=== PATIENT | male | born 2000 | race Caucasian/White ===

== ENCOUNTER 2023-08-20 09:50 | Outpatient (REF) | payer MEDICAID, OTHER, SELFPAY ==
[2023-08-20 11:54] LABS: ~HepC Num1 0.08 S/CO (0.00-0.79); ~Hepatitis B Surface Antibody NONREACTIVE (Nonreactive); ~Hepatitis C Antibody Nonreactive (Nonreactive)
[2023-08-20 11:56] LABS: Alanine Aminotransferase 52 U/L (0-40); Albumin Level 4.9 g/dL (3.5-5.0); Alkaline Phosphatase 69 U/L (39-117); Anion Gap 15 (12-20); Aspartate Amino Transferase 38 U/L (5-37); Bilirubin Total 0.6 mg/dL (0.0-1.0); Blood Urea Nitrogen 12 mg/dL (9-16); Calcium 10.2 mg/dL (8.4-10.2); Carbon Dioxide 25 mmol/L (22-29); Chloride 104 mmol/L (96-108); Cholesterol 260 mg/dL (<200); Estimated Glomerular Filt Rate > 60; Glucose Random 91 mg/dL (60-115); HDL Cholesterol 51 mg/dL (>40); Iron 82 mcg/dL (45-160); LDL Cholesterol Calculated 182 mg/dL (<100); Magnesium 1.9 mg/dL (1.6-2.6); Percent Iron Saturation 24 % (15-50); Potassium 4.3 mmol/L (3.3-5.1); Sodium 140 mmol/L (135-145); Total Iron Binding Capacity 345 mcg/dL (228-428); Total Protein 8.3 g/dL (6.5-8.0); Triglycerides 135 mg/dL (<150); Unsaturated Iron Binding 263 ug/dL
[2023-08-20 13:10] LABS: CT PCR NOT DETECTED (Not Detect.); NG PCR NOT DETECTED (Not Detect.)
[2023-08-24 10:14] LABS: RPR Rapid Plasma Reagin NON-REACTIVE (NON-REACTIVE)
[2023-08-24 17:34] LABS: HIV RNA PCR Qn Copies Not Detected Copies/mL; HIV RNA PCR Qn Log Copies Not Detected Log cps/mL
== END 2023-08-20 09:51 | disposition home or self-care (01) ==
LOC: HO.HHCL 09:50
PROVIDERS: Visit Provider Nurse Practitioner Family
DX: Z00.00 Encounter for general adult medical examination without abnormal findings (principal); Z71.3 Dietary counseling and surveillance; Z20.2 Contact with and (suspected) exposure to infections with a predominantly sexual mode of transmission
CPT/HCPCS: 0353U; 36415; 80053; 80061; 83540; 83735; 86592; 86706; 86787; 86803; 87536; 87900

== ENCOUNTER 2024-04-22 15:00 | Outpatient (REF) | payer MEDICAID, OTHER, SELFPAY ==
[2024-04-23 00:48] LABS: Anion Gap 13 (12-20); Blood Urea Nitrogen 17 mg/dL (9-16); Carbon Dioxide 28 mmol/L (22-29); Chloride 102 mmol/L (96-108); Estimated Glomerular Filt Rate > 60; Glucose Random 96 mg/dL (60-115); Potassium 3.7 mmol/L (3.3-5.1); Sodium 139 mmol/L (135-145)
== END 2024-04-22 15:01 | disposition home or self-care (01) ==
LOC: HO.HHCL 15:00
PROVIDERS: Visit Provider Internal Medicine Geriatric Medicine
DX: I10 Essential (primary) hypertension (principal)
CPT/HCPCS: 36415; 80048

== ENCOUNTER 2024-07-05 10:11 | Outpatient (REF) | payer MEDICAID, OTHER, SELFPAY ==
[2024-07-05 11:23] LABS: Estimated Average Glucose 103 mg/dL; Hemoglobin A1C 124.7934 umol/L; Hemoglobin A1c % 5.2 % (<6.0); Total Hemoglobin (HGBA1C) 3777.4541 umol/L
[2024-07-05 11:43] LABS: HIV AB/AG Nonreactive (Nonreactive); HIV Num 1 0.05 S/CO (0.00-0.99)
[2024-07-05 11:44] LABS: TSH reflex Free T4 1.36 uIU/mL (0.32-4.0)
[2024-07-05 11:45] LABS: Syphilis Screen Nonreactive (Nonreactive)
[2024-07-05 12:44] LABS: CT PCR NOT DETECTED (Not Detect.); NG PCR NOT DETECTED (Not Detect.)
[2024-07-10 08:53] LABS: Aldosterone/Renin Ratio 1.2 Ratio (0.9-28.9); Plasma Renin Activity 17.01 ng/mL/h (0.25-5.82)
== END 2024-07-05 10:12 | disposition home or self-care (01) ==
LOC: HO.HHCL 10:11
PROVIDERS: Visit Provider Registered Nurse
DX: Z11.3 Encounter for screening for infections with a predominantly sexual mode of transmission (principal); I10 Essential (primary) hypertension; E66.09 Other obesity due to excess calories; Z68.33 Body mass index [BMI] 33.0-33.9, adult
CPT/HCPCS: 36415; 82088; 83036; 84443; 86780; 87389; 87491; 87591

== ENCOUNTER 2024-08-01 08:34 | Outpatient (REF) | payer MEDICAID, SELFPAY ==
--- NOTE | ~2024-08-01 | US_ITS ---
EXAMINATION: US OF KIDNEYS WITH RENAL ARTERY DOPPLER CLINICAL INFORMATION: Hypertension. COMPARISON: None available.. TECHNIQUE: Ultrasound of the kidneys was performed along with color flow Doppler imaging and velocity measurements in the proximal mid and distal renal arteries. Aortic velocities were measured and renal/aortic ratios were calculated. In addition, segmental resistive indices were measured bilaterally. FINDINGS: The kidneys appeared normal with the right kidney measuring 11.4 x 5.4 x 6.0 cm and the left kidney measuring 12.9 x 5.4 x 6.2 cm. No renal masses, renal stones or hydronephrosis is seen. Renal cortical thickness appears normal. Velocity measurements in the proximal mid and distal renal arteries are normal. Velocity in the aorta is elevated at 120 cm/s and therefore renal aortic ratios are normal. Segmental resistive indices bilaterally are within normal limits. The bladder appeared unremarkable. US/US renal BI IMPRESSION: No evidence to suggest renal artery stenosis. Electronically signed by: Neftaly Singh MD 09/01/2024 11:10 PM PRATIK
== END 2024-08-01 08:35 | disposition home or self-care (01) ==
LOC: HO.US 08:34
PROVIDERS: PCP Registered Nurse; Visit Provider Registered Nurse
DX: I10 Essential (primary) hypertension (principal)
CPT/HCPCS: 76775; 93975

== ENCOUNTER 2024-09-22 11:11 | Outpatient (REF) | payer MEDICAID, SELFPAY ==
[2024-09-22 13:41] LABS: Appearance Urine Clear; Color Urine Dark Yellow; Glucose Urine UA Negative (Negative); Leukocyte Esterase Urine Negative (Negative); Nitrite Urine Negative (Negative); PH 6.5 (5.0-9.0); Specific Gravity - Urine >= 1.030 (1.005-1.025); UMIC TRIGGER UACC YES; Urine Blood Negative (Negative); Urine Ketones >=160 mg/dL (Negative); Urine Protein 30 (1+) mg/dL (Neg-Trace)
[2024-09-22 13:49] LABS: Bacteria Urine None Seen (None Seen); Hyaline Casts Urine 0-2 /LPF (0-2); RBC Urine 0-2 /HPF (0-2); Squamous Epithelial Cell Urine 0-2 /HPF (0-2); WBC Urine 0-5 /HPF (0-5)
[2024-09-22 14:32] LABS: Creatinine Urine 468.15 mg/dL; Protein/Creatinine Ratio, Ur 0.05 (<0.2); Total Protein Urine Random 22 mg/dL (<12)
[2024-09-22 17:30] LABS: CT PCR NOT DETECTED (Not Detect.); NG PCR NOT DETECTED (Not Detect.)
== END 2024-09-22 11:12 | disposition home or self-care (01) ==
LOC: HO.HHCL 11:11
PROVIDERS: Visit Provider Registered Nurse
DX: Z11.3 Encounter for screening for infections with a predominantly sexual mode of transmission (principal); I10 Essential (primary) hypertension
CPT/HCPCS: 81001; 82570; 84156; 87491; 87591

== ENCOUNTER 2024-10-03 15:10 | Outpatient (REF) | payer MEDICAID, SELFPAY ==
[2024-10-03 16:41] LABS: Estimated Average Glucose 100 mg/dL; Hemoglobin A1C 125.6986 umol/L; Hemoglobin A1c % 5.1 % (<6.0); Total Hemoglobin (HGBA1C) 3875.2236 umol/L
[2024-10-03 17:05] LABS: Anion Gap 12 (12-20); Blood Urea Nitrogen 13 mg/dL (9-16); Calcium 10.1 mg/dL (8.4-10.2); Carbon Dioxide 27 mmol/L (22-29); Chloride 104 mmol/L (96-108); Estimated Glomerular Filt Rate > 60; Glucose Random 77 mg/dL (60-115); Potassium 4.1 mmol/L (3.3-5.1); Sodium 139 mmol/L (135-145)
[2024-10-03 17:21] LABS: TSH reflex Free T4 1.27 uIU/mL (0.32-4.0)
[2024-10-03 18:02] LABS: Appearance Urine Clear; Color Urine Yellow; Glucose Urine UA Negative (Negative); Leukocyte Esterase Urine Negative (Negative); Nitrite Urine Negative (Negative); PH 7.5 (5.0-9.0); Urine Blood Negative (Negative); Urine Ketones Trace mg/dL (Negative); Urine Protein Negative (Neg-Trace)
[2024-10-03 18:11] LABS: Creatinine Urine 197.76 mg/dL; Total Protein Urine Random < 7 mg/dL (<12)
== END 2024-10-03 15:11 | disposition home or self-care (01) ==
LOC: HO.HHCL 15:10
PROVIDERS: Registered Nurse; Visit Provider Internal Medicine
DX: R20.0 Anesthesia of skin (principal); R20.2 Paresthesia of skin; R80.9 Proteinuria, unspecified; I10 Essential (primary) hypertension
CPT/HCPCS: 36415; 80048; 81003; 82570; 83036; 84156; 84443

== ENCOUNTER 2024-11-28 12:07 | Outpatient (REF) | payer MEDICAID, SELFPAY ==
--- OUTSIDE RECORDS SUMMARY | 2024-11-28 13:58 | XMS_ITS | Encounter Summary ---
Author Organization [employer] Address [address] [facility] 7t [place] [address] Care Team Providers Care Director Of Category Management Name Role Phone [facility] Primary Care Provider [phone] Reason for Visit * Reason Onset Date Comments Med Refill 09/25/2024 Encounter Details Date Type Department Care Team (Late st Contact Info) Description 09/25/2024 Refill [facility] [address] [place] [address] [facility] [address] [place] [address] Social History Tobacco Use Types Packs/Day Years Used Date Smoking Tobacco: Never Smokeless Tobacco: Never Alcohol Use Standard Drinks/Week Comments Not Currently 0 (1 standard drink = 0.6 oz pur e alcohol) occasional Depression Answer Date Recorded Patient Health Questionnaire-9 Score 8 09/21/2024 Patient Health Questionnaire-9 Score 8 09/21/2024 Last PHQ-9: Questionnaire Data Not on file 1 11/22/2023 Housing Stability Answer Date Recorded What is your housing situation today? I have telinda montano 08/12/[address] you li ve. Do you have problems with any of the following? None of the above 08/12/2023 Food Insecurity Answer Date Recorded Within the past 12 months, y ou worried that your food would run out before you got money to buy more: Never True 08/12/2023 Within the past 12 months,th e food you bought just didn't last and you didn't have enough money to get more: Never True 05/2023 Transportation Answer Date Recorded In the past 12 months, has l ack of transportation kept you from medical appts, meetings, work or from getting things needed for daily living? No 08/12/2023 Utilities Answer Date Recorded In the past 12 months, has t he electric, gas, oil or water company threatened to shut off services in your home? No 08/12/2023 Depression Answer Date Recorded Patient Health Questionnaire-2 Score 2 09/21/2024 Internet Access Answer Date Recorded Internet Access Q1 Yes 06/24/2024 Internet Access Q2 Not on file 06/24/2024 Sex and Gender Information Value Date Recorded Sex Assigned at Male 12/09/2022 10:25 AM EST Legal Sex Male 10:23 AM EST Gender Identity Male 12/09/2022 10:25 AM EST Sexual Orientation Padgett 09/09/2023 3: 19 PM EST documented as of this encounter Plan of Treatment Not on file documented as of this encounter Visit Diagnoses Not on filedocumented in this encounter Additional Health Concerns Assessment Noted Time PHQ-9 Depression Total Score: 8 09/21/20 10:39 AM EST documented as of this encounter Care Teams Director Of Category Management Relationship Specialty Start Date End Date Madeleine Marquez FNP [address] [place] [address] PCP - General Family Medicine 06/08/24 documented as of this encounter
--- OUTSIDE RECORDS SUMMARY | 2024-11-28 13:58 | XMS_ITS | Encounter Summary ---
Author Organization [employer] Address [address] [facility] 7t [place] [address] Care Team Providers Care Certified Forklift Operator Name Role Phone Madeleine Marquez Primary Care Provider [phone] Reason for Referral * Imaging (Routine) - Closed Specialty Diagnoses / Procedures Referred By Susanna sanderson Referred To Contact Cardiology Diagnoses Hypertension, unspecified type Procedures VASC US Renal Artery Duplex Complete Madeleine Marquez FNP [address] [place] [address] Phone: tel: fax: [facility] [address] [place], [place] Phone: tel: fax: Referral ID Status Reason Start Date Expiration Date V isits Requested Visits Authorized [id number] Closed Perform Procedure 07/13/2024 07/13/2025 1 1 Encounter Details Date Type Department Care Team (Late st Contact Info) Description 07/13/2024 Orders Only [facility] [address] [place] [address] Madeleine Marquez FNP [address] [place] [address] Hypertension, unspecified type (Primary Dx) Social History Tobacco Use Types Packs/Day Years Used Date Smoking Tobacco: Never Smokeless Tobacco: Never Alcohol Use Standard Drinks/Week Comments Not Currently 0 (1 standard drink = 0.6 oz pur e alcohol) occasional Depression Answer Date Recorded Patient Health Questionnaire-9 Score 6 07/04/2024 Patient Health Questionnaire-9 Score 6 07/04/2024 Last PHQ-9: Questionnaire Data Not on file 0 07/04/2024 Housing Stability Answer Date Recorded What is your housing situation today? I have te montano 08/12/[address] you [...] Date Recorded Patient Health Questionnaire-2 Score 2 07/04/2024 Internet Access Answer Date Recorded Internet Access [...] on file documented as of this encounter Procedures Procedure Name Priority Date/Time Associated Diagnosis Comments US RENAL DOPPLER Routine 08/01/2024 9:10 AM EDT US RENAL BI Routine 08/01/2024 9:10 AM EDT documented in this encounter Results * US RENAL DOPPLER (08/01/2024 9:10 AM EDT) Anatomical Region Laterality Modality Abdomen Ultrasound 08/01/2024 9:10 AM EDT Narrative 09/27/2024 12:29 PM EST ? [facility] [place] ?[address] ?[place] [address] ? Ultrasound Report ? Signed ? Patient: Prill,Rainiero ?MR#: [id number] ?? 10 ? : 2000 ?Acct:[id number] ? Age/Sex: 24 / M ?ADM Date: 08/01/24 ? Loc: HO.US ? Attending Dr: Madeleine AGUILAR ? Ordering Physician: Madeleine Marquez ?? Date of Service: 08/01/24 ?? Procedure(s): US renal doppler ?? Accession Number(s): [id number] ? cc: Madeleine Marquez CORPORATE REAL ESTATE MANAGER ? EXAMINATION: ?? ULTRASOUND OF KIDNEYS WITH RENAL ARTERY DOPPLER ? CLINICAL INFORMATION: ?? Hypertension. ? COMPARISON: ?? None. ? TECHNIQUE: ?? Ultrasound of the kidneys was performed along with color flow Doppler ?? imaging and velocity measurements in the proximal mid and distal renal ?? arteries. Aortic velocities were measured and renal/aortic ratios were ?? calculated. Segmental resistive indices were measured. Renal veins were ?? examined for patency. ? FINDINGS: ?? The kidneys appeared normal with the right kidney measuring 11.4 x 5.4 ?? x 6.0 cm and the left kidney measuring 12.9 x 5.4 x 6.2 cm. No renal ?? masses, renal stones or hydronephrosis is seen. Renal cortical ?? thickness appears normal. Velocity measurements in the proximal mid and ?? distal renal arteries are normal. Velocity in the aorta is 120 cm/s ?? and, therefore, the renal aortic ratios are not valid as velocities ?? overall 100 cm/s. Segmental resistive indices were all normal. Renal ?? veins were patent. ? US/US renal doppler ?? IMPRESSION: ?? 1. ??Normal-appearing kidneys. ?? 2. ??No evidence to suggest renal artery stenosis. ? Electronically signed by: ??Neftaly iSngh MD ??09/27/2024 12:26 PM EST ?? RP ? Dictated By: ?Neftaly Singh MD ? Signed By: ?<Electronically signed by Neftaly Singh MD in OV> ? 09/27/24 1226 ? DD/ 0910 ? TD/TT: 08/01/24 0948 ? Cocoa Bean Roaster Helper: SS ? Procedure Note Donotuseinterpreter, Image - 09/27/[address] [address] Ultrasound Report Signed Patient: Kailash Mar#: [id number] 10 : 2000Acct:[id number] Age/Sex: 24 / MADM Date: 08/01/24 Loc: HO. Attending Dr: Madeleine AGUILAR Ordering Physician: Madeleine Marquez Date of Service: 08/01/24 Procedure(s): US renal doppler Accession Number(s): [id number] cc: Madeleine Marquez EXAMINATION: ULTRASOUND OF KIDNEYS WITH RENAL ARTERY DOPPLER CLINICAL INFORMATION: Hypertension. COMPARISON: None. TECHNIQUE: Ultrasound of the kidneys was performed along with color flow Doppler imaging and velocity measurements in the proximal mid and distal renal arteries. Aortic velocities were measured and renal/aortic ratios were calculated. Segmental resistive indices were measured. Renal veins were examined for patency. FINDINGS: The kidneys appeared normal with the right kidney measuring 11.4 x 5.4 x 6.0 cm and the left kidney measuring 12.9 x 5.4 x 6.2 cm. No renal masses, renal stones or hydronephrosis is seen. Renal cortical thickness appears normal. Velocity measurements in the proximal mid and distal renal arteries are normal. Velocity in the aorta is 120 cm/s and, therefore, the renal aortic ratios are not valid as velocities overall 100 cm/s. Segmental resistive indices were all normal. Renal veins were patent. US/US renal doppler IMPRESSION: 1. Normal-appearing kidneys. 2. No evidence to suggest renal artery stenosis. Electronically signed by: Neftaly Singh MD 09/27/2024 12:26 PM [facility] Dictated By: Neftaly Singh MD Signed By: <Electronically signed by Neftaly Singh MD in OV> 09/27/24 1226 DD/ 0910 TD/TT: 08/01/24 0948 Cocoa Bean Roaster Helper: JEANINE [facility] CORPORATE REAL ESTATE MANAGER IMG US PROCEDURES Edited Resu lt - Final * US RENAL BI (08/01/2024 9:10 AM EDT) Anatomical Region Laterality Modality Abdomen Ultrasound 08/01/2024 9:10 AM EDT Narrative 09/01/2024 11:13 PM EST ? [facility] [place] ?[address] ?[place] [address] ? Ultrasound Report ? Signed ? Patient: Prill,Rainiero ?MR#: [id number] ?? 10 ? : 2000 ?Acct:[id number] ? Age/Sex: 24 / M ?ADM Date: 08/01/24 ? Loc: HO.US ? Attending Dr: Madeleine AGUILAR ? Ordering Physician: Madeleine Marquez ?? Date of Service: 08/01/24 ?? Procedure(s): US renal BI ?? Accession Number(s): [id number] ? cc: Madeleine Marquez ? EXAMINATION: ?? US OF KIDNEYS WITH RENAL ARTERY DOPPLER ? CLINICAL INFORMATION: ?? Hypertension. ? COMPARISON: ?? None available.. ? TECHNIQUE: ?? Ultrasound of the kidneys was performed along with color flow Doppler ?? imaging and velocity measurements in the proximal mid and distal renal ?? arteries. Aortic velocities were measured and renal/aortic ratios were ?? calculated. In addition, segmental resistive indices were measured ?? bilaterally. ? FINDINGS: ?? The kidneys appeared normal with the right kidney measuring 11.4 x 5.4 ?? x 6.0 cm and the left kidney measuring 12.9 x 5.4 x 6.2 cm. No renal ?? masses, renal stones or hydronephrosis is seen. Renal cortical ?? thickness appears normal. Velocity measurements in the proximal mid and ?? distal renal arteries are normal. Velocity in the aorta is elevated at ?? 120 cm/s and therefore renal aortic ratios are normal. Segmental ?? resistive indices bilaterally are within normal limits. The bladder ?? appeared unremarkable. ? US/US renal BI ?? IMPRESSION: ?? No evidence to suggest renal artery stenosis. ? Electronically signed by: ??Neftaly Singh MD ??09/01/2024 11:10 PM EST ?? RP ? Dictated By: ?Neftaly Singh MD ? Signed By: ?<Electronically signed by Neftaly Singh MD in OV> ? 09/01/240 ? DD/ 0910 ? TD/TT: 08/01/2448 ? Cocoa Bean Roaster Helper: SS ? Procedure Note Donotquincyter, Image - 09/01/2024 [place] [address] Ultrasound Report Signed Patient: Kailash Mar#: [id number] 10 : 2000Acct:[id number] Age/Sex: 24 / MADM Date: 08/01/24 Loc: HO. Attending Dr: Madeleine AGUILAR Ordering Physician: Madeleine Marquez Date of Service: 08/01/24 Procedure(s): US renal BI Accession Number(s): [id number] cc: Madeleine Marquez EXAMINATION: US OF KIDNEYS WITH RENAL ARTERY DOPPLER CLINICAL INFORMATION: Hypertension. COMPARISON: None available.. TECHNIQUE: Ultrasound of the kidneys was performed along with color flow Doppler imaging and velocity measurements in the proximal mid and distal renal arteries. Aortic velocities were measured and renal/aortic ratios were calculated. In addition, segmental resistive indices were measured bilaterally. FINDINGS: The kidneys appeared normal with the right kidney measuring 11.4 x 5.4 x 6.0 cm and the left kidney measuring 12.9 x 5.4 x 6.2 cm. No renal masses, renal stones or hydronephrosis is seen. Renal cortical thickness appears normal. Velocity measurements in the proximal mid and distal renal arteries are normal. Velocity in the aorta is elevated at 120 cm/s and therefore renal aortic ratios are normal. Segmental resistive indices bilaterally are within normal limits. The bladder appeared unremarkable. US/US renal BI IMPRESSION: No evidence to suggest renal artery stenosis. Electronically signed by: Neftaly Singh MD 09/01/2024 11:10 PM [facility] Dictated By: Neftaly Singh MD Signed By: <Electronically signed by Neftaly Singh MD in OV> 09/01/24 2310 DD/ TD/TT: 08/01/24947 Cocoa Bean Roaster Helper: JEANINE [facility] IM US PROCEDURES Final Resul t documented in this encounter Visit Diagnoses Diagnosis Hypertension, unspecified type- Primary documented in this encounter Additional Health Concerns Assessment Noted Time PHQ-9 Depression Total Score: 6 07/04/20 24 11:53 AM EDT documented as of this encounter Care Teams Certified Forklift Operator Relationship Specialty Start Date End Date [employer] [facility] [address] [place] [address] PCP - General Family Medicine 06/08/24 documented as of this encounter
--- OUTSIDE RECORDS SUMMARY | 2024-11-28 13:58 | XMS_ITS | Encounter Summary ---
Author Organization [employer] Address [address] [facility] 7t [place] [address] Care Team Providers Care Strategic Partnership Specialist Name Role Phone Madeleine Marquez LPC Primary Care Provider [phone] Reason for Visit * Reason Comments Med Refill Encounter Details Date Type Department Care Team (Late st Contact Info) Description 06/23/2024 Refill [facility] [address] [place] [address] Lyric Salcedo FNP [address] [place] [address] Social History Tobacco Use Types Packs/Day Years Used Date Smoking Tobacco: Never Smokeless Tobacco: Never Alcohol Use Standard Drinks/Week Comments Not Currently 0 (1 standard drink = 0.6 oz pur e alcohol) occasional Depression Answer Date Recorded Patient Health Questionnaire-9 Score 10 04/22/2024 Patient Health Questionnaire-9 Score 10 04/22/2024 Last PHQ-9: Questionnaire Data Not on file 0 04/22/2024 Housing Stability Answer Date Recorded What is [...] Answer Date Recorded Patient Health Questionnaire-2 Score 4 04/22/2024 Internet Access Answer Date Recorded Internet Access [...] Assessment Noted Time PHQ-9 Depression Total Score: 10 024 2:41 PM EDT documented as of this encounter Care Teams Strategic Partnership Specialist Relationship Specialty Start Date End Date Madeleine Marquez FNP [address] [place] [address] PCP - General Family Medicine 06/08/24 documented as of this encounter
--- OUTSIDE RECORDS SUMMARY | 2024-11-28 13:58 | XMS_ITS | Encounter Summary ---
Author Organization [employer] Address [address] [facility] 7t h [address] [address] Care Team Providers Care Sternman Name Role Phone Madeleine Marquez ACCOUNTANT BUDGET Primary Care Provider [phone] Reason for Visit * Reason Onset Date Comments Med Refill 07/24/2024 Encounter Details Date Type Department Care Team (Late st Contact Info) Description 07/24/2024 Refill [facility] [address] [place] [address] Name, MD Gustabo [address] [place] [address] Social History Tobacco Use Types Packs/Day Years [...] documented as of this encounter Care Teams Sternman Relationship Specialty Start Date End Date Madeleine Marquez FNP [address] [place] [address] PCP - General Family Medicine 06/08/24 documented as of this encounter
--- OUTSIDE RECORDS SUMMARY | 2024-11-28 13:58 | XMS_ITS | Clinical Summary ---
Author Organization [facility] Address [address] [place] [address] Care Team Providers Care Tank Farm Gauger Name Role Phone Andrew Rand PA-C Primary Care Provider [phone] Source Comments PLEASE NOTE, if this patient is a minor, it may be UNLAWFUL to discuss sensitive information that is contained in these records (such as FAMILY PLANNING, MENTAL HEALTH or SUBSTANCE ABUSE) with the minor patient's parent or other person without the patient's specific authorization.[facility] Allergies No known active allergies Medications cholecalciferol, vitamin D3, 25 mcg (1,000 unit) capsuleIndication s:Vitamin D deficiency Take 1 Cap by mouth once daily 30 Cap 3 10/03/2019 Active acetaminophen (TYLENOL) 500 mg tabletIndications :Nonintractable headache, unspecified chronicity pattern, unspecified headache type Take 2 Tabs by mouth every 8 (eight) hours as needed (headache) 60 Tab 2 10/19/2019 Active hydroCHLOROthiazi de (HYDRODIURIL) 12.5 mg tabletIndications :Essential hypertension Take 1 Tab by mouth once daily 90 Tablet 1 12/08/2020 Active Active Problems Problem Noted Date Diagnosed Date Essential hypertension 09/28/2019 Vitamin D deficiency 09/28/2019 BMI 37.0-37.9, adult 09/20/2019 Hemangioma of skin 09/20/2019 Immunizations Name Administration Dates Next Due Flu, Preservative Free 10/19/2019 HPV 9 (Gardasil) 10/19/2019 11/22/2019 Varicella, Live Vaccine 10/07/2019 Family History Medical History Relation Name Comments No Known Problems Brother Diabetes Maternal Grandfather No Known Problems Maternal Grandmother Hypertension Mother No Known Problems Sister 2 Relation Name Status Comments Brother Alive Maternal Grandfather Alive Maternal Grandmother Alive Mother Alive Sister 1 Alive Sister 2 Alive Social History Tobacco Use Types Packs/Day Years Used Date Smoking Tobacco: Never Smokeless Tobacco: Never Alcohol Use Standard Drinks/Week Comments Yes 0 (1 standard drink = 0.6 oz pur e alcohol) Social Connections Answer Date Recorded Social Connections and Isolation 0 09/20/2019 Financial Resource Strain Answer Date R ecorded Financial Resource Strain 0 2018 Stress Answer Date Recorded Stress 0 09/20/2019 Physical Activity Answer Date Recorded Physical Activity 0 09/20/2019 Food Insecurity Answer Date Recorded Food 0 09/20/2019 Transportation Needs Answer Date Record ed Transportation 0 09/20/2019 Housing Stability Answer Date Recorded Housing 0 09/20/2019 Safety and Environment Answer Date Jose Alberto rded Safety 0 09/20/2019 Utilities Answer Date Recorded Utilities 0 09/20/2019 Employment Answer Date Recorded Employment 0 09/20/2019 Sex and Gender Information Value Date Recorded Sex Assigned at Male 09/20/2019 12:21 PM PST Legal Sex Female 11:04 AM PST Gender Identity Male 09/20/2019 12:21 PM PST Sexual Orientation Padgett 09/20/2019 12 :21 PM PST 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 Not on file Not on file Not on ethan e Last Filed Vital Signs Vital Sign Reading Time Taken Comments Blood Pressure 130/78 10/19/2019 3:47 PM EST Pulse 116 10/19/2019 3:47 PM EST Temperature 36.8 ??C (98.2 ??F) 10/19/2019 3:47 PM ES T Respiratory Rate 20 10/19/2019 3:47 PM EST Oxygen Saturation 97% 10/19/2019 3:47 PM EST Inhaled Oxygen Concentration - - Weight 124.7 kg (275 lb) 10/19/2019 3:47 PM EST Height 182 cm (5' 11.65 ) 09/20/2019 3:13 PM EST Body Mass Index 37.66 09/20/2019 3:13 PM EST Plan of Treatment Not on file Insurance [place] MED[place]AF[place] Care Teams Tank Farm Gauger Relationship Specialty Start Date End Date Andrew Rand PA-C [address] [place] [address] PCP - General 04/30/22
--- OUTSIDE RECORDS SUMMARY | 2024-11-28 13:58 | XMS_ITS | Encounter Summary ---
Author Organization [employer] Address [address] [facility] 7t [place] [address] Care Team Providers Care Moisture Conditioner Operator Name Role Phone Lyric Salcedo SURFACE WATER MANAGER Primary Care Provider [phone] [facility] Primary Care Provider [phone] Reason for Visit * Reason Onset Date Comments Med Refill 09/13/2023 Encounter Details Date Type Department Care Team (Late st Contact Info) Description 09/13/2023 Refill [facility] [address] [place] [address] Lyric Salcedo FNP [address] [place] [address] Hypertension, unspecified type Social History Tobacco Use Types Packs/Day Years Used Date Smoking Tobacco: Never Alcohol Use Standard Drinks/Week Comments Not Currently 0 (1 standard drink = 0.6 oz pur e alcohol) occasional Housing Stability Answer Date Recorded What is [...] off services in your home? No 08/12/2023 Sex and Gender Information Value Date Recorded Sex Assigned at Male 12/09/2022 10:25 AM EST Legal Sex Male 10:23 AM EST Gender Identity Male 12/09/2022 10:25 AM EST Sexual Orientation Padgett 09/09/2023 3: 19 PM EST documented as of this encounter Plan of Treatment Not on file documented as of this encounter Visit Diagnoses Diagnosis Hypertension, unspecified type documented in this encounter Care Teams Moisture Conditioner Operator Relationship Specialty Start Date End Date Lyric Salcedo FNP [address] [place] [address] PCP - General Family Medicine 08/19/23 06/07/24 LangstonMadeleine FNP [address] [place] [address] PCP - General Family Medicine 06/08/24 documented as of this encounter
--- OUTSIDE RECORDS SUMMARY | 2024-11-28 13:58 | XMS_ITS | Encounter Summary ---
Author Organization [employer] Address [address] [facility] 7t [place] [address] Care Team Providers Care Reading Professor Name Role Phone Madeleine Marquez GEOLOGICAL AIDE Primary Care Provider [phone] Reason for Visit * Reason Onset Date Comments Med Refill 09/25/2024 Encounter Details Date Type Department Care Team (Late st Contact Info) Description 09/25/2024 Refill [facility] MED[facility]INE [address] [place] [address] Name, MD Gustabo [address] [place] [address] Social History Tobacco Use Types Packs/Day Years [...] documented as of this encounter Care Teams Reading Professor Relationship Specialty Start Date End Date Madeleine Marquez FNP [address] [place] [address] PCP - General Family Medicine 06/08/24 documented as of this encounter
--- OUTSIDE RECORDS SUMMARY | 2024-11-28 13:58 | XMS_ITS | Encounter Summary ---
Author Organization [email or web address] Address [address] [facility] 7t [place] [address] Care Team Providers Care Claim Auditor Name Role Phone Madeleine Marquez BIAS MACHINE OPERATOR HELPER Primary Care Provider [phone] Reason for Visit * Reason Onset Date Comments Med Refill 06/21/2024 Encounter Details Date Type Department Care Team (Late st Contact Info) Description 06/21/2024 Refill [facility] [address] [place] [address] Name, MD Gustabo [address] [place] [address] Social History Tobacco Use Types Packs/Day Years [...] documented as of this encounter Care Teams Claim Auditor Relationship Specialty Start Date End Date Madeleine Marquez FNP [address] [place] [address] PCP - General Family Medicine 06/08/24 documented as of this encounter
--- OUTSIDE RECORDS SUMMARY | 2024-11-28 13:59 | XMS_ITS | Encounter Summary ---
Author Organization [employer] Address [address] [facility] 7t [place] [address] Care Team Providers Care Junior Analyst Name Role Phone Lyric Salcedo Primary Care Provider [phone] [facility] Primary Care Provider [phone] Reason for Visit * Reason Onset Date Comments Med Refill 01/12/2024 Encounter Details Date Type Department Care Team (Late st Contact Info) Description 01/12/2024 Refill [facility]INE [address] [place] [address] Lyric Salcedo FNP [address] [place] [address] Social History Tobacco Use Types Packs/Day Years [...] Diagnoses Not on filedocumented in this encounter Care Teams Junior Analyst Relationship Specialty Start Date End Date Lyric Salcedo FNP [address] [place] [address] PCP - General Family Medicine 08/19/23 06/07/24 [place]leine FNP [address] [place] [address] PCP - General Family Medicine 06/08/24 documented as of this encounter
--- OUTSIDE RECORDS SUMMARY | 2024-11-28 13:59 | XMS_ITS | Encounter Summary ---
Author Organization [employer] Address [address] [facility] 7[address] [place] [address] Care Team Providers Care Woodworking Machine Operator Name Role Phone Alma [facility] Primary Care Provider [phone] Reason for Visit * Reason Comments Follow-up Encounter Details Date Type Department Care Team (Late st Contact Info) Description 11/28/2024 11:15 AM EST Office Visit [facility] MEDICINE [address] [place] [address] [place], [facility] [address] [place] [address] Encounter for screening examination for sexually transmitted disease (Primary Dx); Encounter for immunization Social History Tobacco Use Types Packs/Day Years [...] PM EST documented as of this encounter Last Filed Vital Signs Vital Sign Reading Time Taken Comments Blood Pressure 140/72 11/28/2024 11:10 AM EST Pulse 80 11/28/2024 11:10 AM EST Temperature 36.9 ??C (98.4 ??F) 11/28/2024 11:[address] Respiratory Rate 16 11/28/2024 11:10 AM EST Oxygen Saturation - - Inhaled Oxygen Concentration - - Weight 120 kg (264 lb 6 oz) 11/28/2024 11:10 AM EST Height 186 cm (6' 1.23 ) 11/28/2024 11:10 AM EST Body Mass Index 34.66 11/28/2024 11:10 AM EST documented in this encounter Plan of Treatment Scheduled Orders Name Type Priority Associated Diagnoses Orde r Schedule Syphilis Screen Lab Routine Encounter for screening examination for sexually transmitted disease Expected: 11/28/2024, Expires: 11/28/2025 HIV-1/2 Antigen and Antibodies, Fourth Generation, with Reflexes Lab Routine Encounter for screening examination for sexually transmitted disease Expected: 11/28/2024 (Approximate), Expires: 11/28/2025 Hepatitis C Antibody with Reflex to HCV, RNA, Quantitative, Real-Time PCR Lab Routine Encounter for screening examination for sexually transmitted disease Expected: 11/28/2024, Expires: 11/28/2025 Hepatitis B surface antigen, EIA Lab Routine Encounter for screening examination for sexually transmitted disease Expected: 11/28/2024 (Approximate), Expires: 11/28/2025 Hepatitis B Surface Antibody, Qualitative Lab Routine Encounter for screening examination for sexually transmitted disease Expected: 11/28/2024 (Approximate), Expires: 11/28/2025 Chlamydia/N. Gonorrhoeae RNA, TMA, Urogenitial Microbiology Routine Encounter for screening examination for sexually transmitted disease Expected: 11/28/2024 (Approximate), Expires: 11/28/2025 documented as of this encounter Visit Diagnoses Diagnosis Encounter for screening examination for sexually transmitted disease- Primary Encounter for immunization documented in this encounter Additional Health Concerns Assessment Noted Time PHQ-9 Depression Total Score: 8 09/21/20 10:39 AM EST documented as of this encounter Care Teams Woodworking Machine Operator Relationship Specialty Start Date End Date ReeseMadeleine FNP [address] [place] [phone] PCP - General Family Medicine 06/08/24 documented as of this encounter
--- OUTSIDE RECORDS SUMMARY | 2024-11-28 13:59 | XMS_ITS | Encounter Summary ---
Author Organization [employer] Address [address] [facility] 7t [place] [address] Care Team Providers Care Mounter Clarinets Name Role Phone Lyric Salcedo Primary Care Provider [facility] Primary Care Provider Reason for Visit * Reason Onset Date Comments Med Refill 01/17/2024 Encounter Details Date Type Department Care Team (Late st Contact Info) Description 01/17/2024 Refill [facility] MEDICINE [address] [place] [address] Lyric Salcedo FNP [address] [place] [address] Social History Tobacco Use Types Packs/Day Years [...] on filedocumented in this encounter Care Teams Mounter Clarinets Relationship Specialty Start Date End Date Lyric Salcedo FNP [address] [place] [address] PCP - General Family Medicine 08/19/23 06/07/24 [place]Madeleine FNP [address] [place] [address] PCP - General Family Medicine 06/08/24 documented as of this encounter
--- OUTSIDE RECORDS SUMMARY | 2024-11-28 13:59 | XMS_ITS | Clinical Summary ---
Author Organization [employer] Address [address] [facility] 7t [place] [address] Care Team Providers Care Sales Development Consultant Name Role Phone Madeleine Marquez DIRECT CASTING OPERATOR Primary Care Provider [phone] Allergies No known active allergies Medications * This document contains information received from the source organization and may not represent a complete record from that organization. Multiple Vitamin (multivitamin) tablet Take 1 tablet by mouth in the morning. Active Blood Pressure Monitor kit 1 kit 2 times daily. 1 kit 3 Active lisinopril (Prinivil) 20 MG tablet Take 1 tablet (20 mg) by mouth Once per day. 90 tablet 3 4 04/22/20 25 Active chlorthalidone (Hygroton) 25 MG tablet TAKE 1 TABLET BY MOUTH EVERY DAY 90 tablet 1 4 Active hydrOXYzine pamoate (Vistaril) 25 MG capsule TAKE 1 CAPSULE BY MOUTH EVERY 6 HOURS NEEDED FOR ANXIETY 180 capsule 1 4 Active escitalopram (Lexapro) 20 MG tablet TAKE 1 TABLET BY MOUTH ONCE DAILY 30 tablet 3 4 Active cetirizine (ZyrTEC) 10 MG tabletIndications :Mild intermittent asthma without complication Take 1 tablet (10 mg) by mouth Once per day. 30 tablet 11 4 09/21/20 25 Active albuterol 108 (90 Base) MCG/ACT inhalerIndication s:Mild intermittent asthma without complication Inhale 2 puffs every 6 (six) hours if needed for wheezing. 18 g 11 4 09/21/20 Active Spacer/Aero-Holdi ng Chambers deviceIndications :Mild intermittent asthma without complication Use as directed with inhaler 1 each 4 Active Active Problems Problem Noted Date Diagnosed Date Mild intermittent asthma without complication Severe recurrent major depre ssion without psychotic features 04/14/2024 Essential hypertension 09/28/2019 Vitamin D deficiency 09/28/2019 BMI 37.0-37.9, adult 09/20/2019 Hemangioma of skin 09/20/2019 Encounters Date Type Department Care Team Description 11/28/2024 11:15 AM EST Office Visit [facility] MEDICINE [address] [place] [phone] Madeleine Marquez FNP Encounter for screening examination for sexually transmitted disease (Primary Dx); Encounter for immunization 11/28/2024 Travel 10/03/2024 3:20 PM EST Office Visit [facility] [address] [place] [phone] Miguel Ingram MD Essential hypertension (Primary Dx); Numbness and tingling in left arm 10/03/2024 Telephone [facility] [address] [place] [phone] G[place]amMadeleine [facility] 09/25/2024 Refill [facility] [address] [place] [address] [facility]/25/[facility]24 Refill [facility] [address] [place] [phone] Gustabo Mccauley MD 09/23/2024 Telephone [facility] [address] [place] [address] Renetta Estevez, RN Results 09/23/2024 Orders Only [facility] [address] [place] [phone] Madeleine Marquez FNP Proteinuria, unspecified type (Primary Dx) 09/21/2024 10:15 AM EST Office Visit [facility] [address] [place] [address] Madeleine Marquez FNP Hypertension, unspecified type (Primary Dx); Mild intermittent asthma without complication; Class 1 obesity due to excess calories with serious comorbidity and body mass index (BMI) of 33.0 to 33.9 in adult; Dietary counseling; Exercise counseling; Routine screening for STI (sexually transmitted infection) 09/21/2024 Travel 09/21/2024 Refill [facility] [address] [place] [address] Name, MD Gustabo 09/12/2024 Patient Outreach [facility] [address] [place] [address] AlmaMadeleine yates FNP Pre-visit Planning (SDOH screening completed on 06/24/2024) 09/08/2024 Telephone [facility] [address] [place] [address] Madeleine Marquez FNP Results from Last 3 Months Immunizations Name Administration Dates Next Due HPV 9-Valent 02/17/2024,10/14/2023,10/19/2019 Hep B, adult 07/04/2024,10/14/2023 Influenza injectable quadriv alent preservative free 08/19/2023,10/19/2019 Influenza, seasonal, injecta ble, preservative free 07/04/2024 Pfizer Covid-19 Vaccine 12+ 07/04/2024 Pneumococcal Conjugate PCV 20 11/28/2024 Tdap 10/14/2023 Varicella 10/07/2019 Family History Medical History Relation Name Comments Diabetes type II Mother Hypertension Mother Kidney disease Mother Relation Name Status Comments Mother Social History Tobacco Use Types Packs/Day Years Used Date Smoking Tobacco: Never Smokeless Tobacco: Never Tobacco Cessation:Counseling Given: Not Answered Alcohol Use Standard Drinks/Week Comments Not Currently [...] Orientation [place] 09/09/2023 3: 19 PM EST Last Filed Vital Signs Vital Sign Reading Time Taken Comments Blood Pressure 140/72 11/28/2024 11:10 AM EST Pulse 80 11/28/2024 11:10 AM EST Temperature 36.9 ??C (98.4 ??F) 11/28/2024 11:[address] Respiratory Rate 16 11/28/2024 11:10 AM EST Oxygen Saturation 97% 10/03/2024 2:16 PM EST Inhaled Oxygen Concentration - - Weight 120 kg (264 lb 6 oz) 11/28/2024 11:10 AM EST Height 186 cm (6' 1.23 ) 11/28/2024 11:10 AM EST Body Mass Index 34.66 11/28/2024 11:10 AM EST Plan of Treatment Health Maintenance Due Date Last Done Comments Alcohol/Substance Use Screening 2012 Family Planning (PISQ) 2015 Hepatitis A Vaccines (1 of 2 - Risk 2-dose series) 2019 Hepatitis B Vaccines (3 of 3 - 19+ 3-dose series) 08/29/2024 07/04/2024, 10/14/2023 SDOH Screening 06/24/2025 06/24/2024 Depression Screening 09/21/2025 09/21/2024, 09/21/2024 Tobacco Screening 11/28/2025 11/28/2024 Lipid Panel 08/20/2028 08/20/2023 DTaP/Tdap/Td Vaccines (2 - T d or Tdap) 10/14/2033 10/14/2023 Zoster Vaccines (1 of 2) 2050 RSV Patients and Patients Aged 60 years or older (1 - 1-dose 75+ series) 2075 Hepatitis C Screening Completed 08/20/2023 HPV Vaccines Completed 02/17/2024, 10/14/2023, 10/19/2019 COVID-19 Vaccine Completed 07/04/2024 Influenza Vaccine Completed 07/04/2024, 08/19/2023, 10/19/2019 HIV Screening Completed 07/05/2024 Pneumococcal Vaccine: Pediatrics (0 to 5 Years) and At-Risk Patients (6 to 49) Years) Completed 11/28/2024 HIB Vaccines Aged Out No longer eligi ble based on patient's age to complete this topic IPV Vaccines Aged Out No longer eligi ble based on patient's age to complete this topic Meningococcal Vaccine Aged Out No harjinder casey eligible based on patient's age to complete this topic RSV under 20 months Aged Out No longe r eligible based on patient's age to complete this topic Rotavirus Vaccines Aged Out No longer eligible based on patient's age to complete this topic Procedures Procedure Name Priority Date/Time Associated Diagnosis Comments TSH W/REFLEX TO FT4 Routine 10/03/2024 3 :15 PM EST Numbness and tingling in left arm HEMOGLOBIN A1C Routine 10/03/2024 3:15 PM EST Numbness and tingling in left arm BASIC METABOLIC PANEL Routine 10/03/2024 3:15 PM EST Numbness and tingling in left arm URINALYSIS WITH REFLEX MICROSCOPIC Routine 10/03/2024 3:15 PM EST Proteinuria, unspecified type PROTEIN CREATININE RATIO, URINE Routine 10/03/2024 3:15 PM EST Proteinuria, unspecified type ECG 12-LEAD Routine 10/03/2024 2:56 PM EST Essential hypertension Numbness and tingling in left arm PROTEIN CREATININE RATIO, URINE Routine 09/22/2024 11:21 AM EST Hypertension, unspecified type URINALYSIS, COMPLETE, WITH REFLEX TO CULTURE Routine 09/22/2024 11:21 AM EST Hypertension, unspecified type CHLAMYDIA/N. GONORRHOEAE RNA, TMA, UROGENITAL Routine 09/22/2024 10:21 AM EST Routine screening for STI (sexually transmitted infection) HIV 1/2 ANTIGEN/ANTIBODY, FOURTH GENERATION W/RFL Routine 07/05/2024 10:21 AM EDT Encounter for screening examination for sexually transmitted disease HEPATITIS C AB W/REFL TO HCV RNA, QN, PCR Routine 08/20/2023 9:54 AM EST Routine general medical examination at a health care facility LIPID PANEL, STANDARD Routine 08/20/2023 9:54 AM EST Dietary counseling from Last 3 Months or Most Recently Relevant to Health Maintenance Results * Protein Creatinine Ratio, Urine (10/03/2024 3:15 PM EST) Only the most recent of2 resultswithin the time period is included. Creatinine, Urine 197.76 mg/dL [facility] Protein, Total, Random Urine <7 <12 mg/dL [facility] Protein/Creatin ine Ratio, Ur TNP <0.2 [facility] Comment:Unable to calculate urine protein creatinine ratio due tolow creatinine or protein result. 10/03/2024 3:15 PM EST 10/03/2024 5:29 PM EST [facility] LAB URINE ORDERABLES Final Re sult [facility] [address] [place] [address] [phone] * TSH W/Reflex to FT4 (10/03/2024 3:15 PM EST) TSH reflex Free T4 1.27 0.32 - 4.0 uIU/mL [facility] Blood Venous blood specimen / Unknown 10/03/2024 3:15 PM EST 10/03/2024 4:11 PM EST Miguel Ingram MD LAB BLOOD ORDERABLES Final Result [facility] [address] [place] [phone] [phone] * Urinalysis with reflex microscopic (10/03/2024 3:15 PM EST) Color Urine Yellow [facility] Appearance Urine Clear [facility] PH 7.5 5.0 - 9.0 [facility] Glucose Urine UA Negative Negative mg/dL [facility] Urine Blood Negative Negative [facility] Specific [place] - Urine 1.020 1.005 - 1.025 [facility] Urine Protein Negative Neg-Trace mg/dL [facility] Urine Ketones Trace Negative mg/dL [facility] Nitrite Urine Negative Negative [facility] Leukocyte Esterase Urine Negative Negative [facility] Urine (Urine, Random) 10/03/2024 3:15 PM EST 10/03/2024 5:29 PM EST Narrative [facility] - 10/03/2024 6:03 PM EST Urine, Clean Catch [facility] LAB URINE ORDERABLES Final Re sult Performing Organization Address City/[facility]/ZIP Co de Phone Number [facility] [address] [place] [address] [phone] * Hemoglobin A1c (10/03/2024 3:15 PM EST) Hemoglobin A1c 5.1 <6.0 % [facility] Comment:Hemoglobin A1C Refer ence Range Adults: 4.8 - 6.0 % Non diabetic: < 6.0 % Goal: < 7.0 %Additional Action Suggested: > 8.0 %Note: Hemoglobin A1c results are invalid for patients with abnormal amounts of HbF. Blood transfusions may impact the HbA1c concentration in the patient sample. Estimated Average Glucose 100 mg/dL [facility] Comment:eAG = Estimated ave rage glucose which is %A1C expressed asaverage glucose, using the formula of the B7M-PadaupxVyojeia Glucose study (ADAG), Diabetes Care, Vol.31,#8,May. 2007 Blood Venous blood specimen / Unknown 10/03/2024 3:15 PM EST 10/03/2024 4:11 PM EST us Miguel Ingram MD LAB BLOOD ORDERABLES Final Result [facility] [address] [place] [phone] * Basic Metabolic Panel (10/03/2024 3:15 PM EST) Sodium 139 135 - 145 mmol/L [facility] Potassium 4.1 3.3 - 5.1 mmol/L [facility] Chloride 104 96 - 108 mmol/L [facility] Carbon Dioxide 27 22 - 29 mmol/L [facility] Anion Gap 12 12 - 20 [facility] Urea Nitrogen (BUN) 13 9 - 16 mg/dL [facility] Creatinine, Serum 0.76 0.5 - 1.4 mg/dL [facility] Estimated Glomerular Filt Rate >60 [facility] Comment:Chronic Kidney Disea se: Estimated GFR < 60 mL/min/1.29y4Hmssku Kidney Disease: Estimated GFR < 15 mL/min/1.73m2 Glucose 77 60 - 115 mg/dL [facility] Calcium 10.1 8.4 - 10.2 mg/dL [facility] Blood Venous blood specimen / Unknown 10/03/2024 3:15 PM EST 10/03/2024 4:11 PM EST us Miguel Ingram MD LAB BLOOD ORDERABLES Final Result [facility] [address] [place] [phone] [phone] * ECG 12 lead (10/03/2024 2:56 PM EST) Miguel Hassan MD - 10/03/2024 2:56 PM EST HR: 73. [place] 50 degrees. NSR. No LAE, No PREET. No hypertrophy. No ST elevation or depression. Normal EKG. us Miguel Ingram MD ECG ORDERABLES Final Resul t * (ABNORMAL) Urinalysis, Complete, with Reflex to Culture (09/22/2024 11:21 AM EST) Color Urine Dark Yellow [facility] Appearance Urine Clear [facility] PH 6.5 5.0 - 9.0 [facility] Glucose Urine UA Negative Negative mg/dL [facility] Urine Blood Negative Negative [facility] Specific [place] - Urine >=1.030(H) 1.005 - 1.025 [facility] Urine Protein 30 (1+)(A) Neg-Trace mg/dL [facility] Urine Ketones >=160 Negative mg/dL [facility] Nitrite Urine Negative Negative [facility] Leukocyte Esterase Urine Negative Negative [facility] RBC Urine 0-2 0 - 2 /HPF [facility] Urine WBC 0-5 0 - 5 /HPF [facility] Urine Squamous Epithelial Cell 0-2 0 - 2 /HPF [facility] Urine Bacteria None Seen None Seen [facility] Hyaline Casts, Urine 0-2 0 - 2 /LPF [facility] Urine 09/22/2024 11:2 1 AM EST 09/22/2024 1:16 PM EST Narrative [facility] - 09/22/2024 1:49 PM EST Urine, Clean Catch [facility] LAB URINE ORDERABLES Final Re sult [facility] [address] [place] [address] [phone] * Chlamydia/N. Gonorrhoeae RNA, TMA, Urogenitial (09/22/2024 10:21 AM EST) CT PCR NOT DETECTED Not Detect. [facility] Comment:A not detected test result does not exclude the possibilityof infection because test results can be affected byimproper specimen collection, concurrent antibiotic therapy,or the number of organisms in the specimen which may bebelow the sensitivity of the test. As with many diagnostictests, results from the Xpert CT/NG assay should beinterpreted in conjunction with other laboratory andclinical data available to the clinician.Xpert CT/NG performance has not been evaluated in patientsless than 14 years of age. The assay should not be used forthe evaluationof suspected sexual abuse or for other medico-legalindications. Additional testing is recommended in anycircumstance when false positive or false negative resultscould lead to adverse medical, social or psychologicalconsequences. NG PCR NOT DETECTED Not Detect. [facility] Comment:A not detected test result does not exclude the possibilityof infection because test results can be affected byimproper specimen collection, concurrent antibiotic therapy,or the number of organisms in the specimen which may bebelow the sensitivity of the test. As with many diagnostictests, results from the Xpert CT/NG assay should beinterpreted in conjunction with other laboratory andclinical data available to the clinician.Xpert CT/NG performance has not been evaluated in patientsless than 14 years of age. The assay should not be used forthe evaluationof suspected sexual abuse or for other medico-legalindications. Additional testing is recommended in anycircumstance when false positive or false negative resultscould lead to adverse medical, social or psychologicalconsequences. Urine (Urine, Random) 09/22/2024 10:21 AM EST 09/22/2024 1:16 PM EST Narrative [facility] - 09/22/2024 5:30 PM EST Urine [facility] LAB MICROBIOLOGY - GENERAL OR DERABLES Final Result Performing Organization Address [facility] Co de Phone Number [facility] [address] [place] [phone] * HIV-1/2 Antigen and Antibodies, Fourth Generation, with Reflexes (07/05/2024 10:21 AM EDT) HIV AB/AG Nonreactive Nonreactive [facility] Comment:HIV-1 p24 Ag and/or HIV-1/HIV-2 Ab not detected.A test result that is nonreactive does not exclude thepossibility of exposure to or infection with HIV-1 and/orHIV-2. Nonreactive results in this assay for individualswith prior exposure to HIV-1 and/or HIV-2 may be due toantigen and antibody levels that are below the limit ofdetection of this assay.The [employer] HIV Ag/Ab Combo assay result andsupplemental assay results should be interpreted inconjunction with the patient's clinical presentation,history and other laboratory results. If the results areinconsistent with clinical evidence, additional testing issuggested to confirm the result. Blood Venous blood specimen / Unknown 07/05/2024 10:21 AM EDT 07/05/2024 11:01 AM EDT [facility] LAB BLOOD ORDERABLES Final Re sult Performing Organization Address City/[facility] Co de Phone Number [facility] [address] [place] [phone] * Hepatitis C Antibody with Reflex to HCV, RNA, Quantitative, Real-Time PCR (08/20/2023 9:54 AM EST) Hepatitis C Antibody Nonreactive Nonreactive [facility] Comment:Antibodies to HCV no t detected; does not exclude early acuteHCV infection. Blood Venous blood specimen / Unknown 08/20/2023 9:54 AM EST 08/20/2023 11:03 AM EST [facility] BLOOD ORDERABLES Final Resu lt Performing Organization Address City/[facility] Co de Phone Number [facility] [address] [place] [phone] * (ABNORMAL) Lipid Panel, Standard (08/20/2023 9:54 AM EST) Triglycerides 135 <150 mg/dL [facility] Comment:Desirable Triglyceri de: less than 150 mg/dLBorderline High Triglyceride 150-199 mg/dLHigh Triglyceride: 200-499 mg/dLVery High Triglyceride: greater than or equal to 5OO mg/dL Cholesterol 260(H) <200 mg/dL [facility] Comment:Desirable Cholestero l: less than 200 mg/dLBorderline High Cholesterol: 200-239 mg/dLHigh Cholesterol: greater than 239 mg/dL LDL Cholesterol Calculated 182(H) <100 mg/dL [facility] Comment:Desirable LDL: less than 100 mg/dLNear Optimal/Above Optimal LDL: 110- 129 mg/dLBorderline High LDL: 130-159 mg/dLHigh LDL: 160-189 mg/dLVery High LDL: greater than or equal to 190 mg/dL HDL Cholesterol 51 >40 mg/dL [facility] Comment:Desirable HDL: great er than 40 mg/dL Note: This HDL assay may give artificially low results in patients with liver disease. Blood Venous blood specimen / Unknown 08/20/2023 9:54 AM EST 08/20/2023 11:03 AM EST [facility] LAB BLOOD ORDERABLES Final Resu lt Performing Organization Address City/[facility]/ZIP Co de Phone Number [facility] [address] [place] [phone] from Last 3 Months or Most Recently Relevant to Health Maintenance Insurance [facility] C3 HSN PARTIAL Care Teams Sales Development Consultant Relationship Specialty Start Date End Date Madeleine Marquez FNP [address] [place] [address] PCP - General Family Medicine 06/08/24
--- OUTSIDE RECORDS SUMMARY | 2024-11-28 13:59 | XMS_ITS | Encounter Summary ---
Author Organization [employer] Address [address] [place] [address] Care Team Providers Care Thread Spooler Name Role Phone Madeleine Marquez DATA ANALYTICS SPECIALIST Primary Care Provider [phone] Encounter Details Date Type Department Care Team (Latest Contact Info) Description 11/28/2024 Travel Social History Tobacco Use Types Packs/Day Years [...] t he electric, gas, oil or water [employer] threatened to shut off services in your [...] documented as of this encounter Care Teams Thread Spooler Relationship Specialty Start Date End Date Madeleine Marquez FNP [address] [place] [id number] PCP - General Family Medicine 06/08/24 documented as of this encounter
[2024-11-28 14:01] LABS: Appearance Urine Clear; Color Urine Yellow; Glucose Urine UA Negative (Negative); Leukocyte Esterase Urine Negative (Negative); Nitrite Urine Negative (Negative); Specific Gravity - Urine 1.025 (1.005-1.025); Urine Blood Negative (Negative); Urine Ketones Trace mg/dL (Negative); Urine Protein Negative (Neg-Trace)
[2024-11-28 14:25] LABS: Syphilis Screen Nonreactive (Nonreactive)
[2024-11-28 14:26] LABS: HBS Num1 25.06 mIU/mL (0-7.99); HBsAGNum1 0.29 S/CO (0.00-0.99); HIV AB/AG Nonreactive (Nonreactive); HIV Num 1 0.05 S/CO (0.00-0.99); Hepatitis B Surface Antigen Negative (Negative); ~HepC Num1 0.09 S/CO (0.00-0.79); ~Hepatitis B Surface Antibody REACTIVE (Nonreactive); ~Hepatitis C Antibody Nonreactive (Nonreactive)
[2024-11-28 16:43] LABS: CT PCR NOT DETECTED (Not Detect.); NG PCR NOT DETECTED (Not Detect.)
== END 2024-11-28 12:08 | disposition home or self-care (01) ==
LOC: HO.HHCL 12:07
PROVIDERS: Visit Provider Registered Nurse
DX: Z11.3 Encounter for screening for infections with a predominantly sexual mode of transmission (principal); I10 Essential (primary) hypertension
CPT/HCPCS: 81003; 86706; 86780; 86803; 87340; 87389; 87491; 87591